=== PATIENT | female | born 1955 | race Caucasian/White ===

== ENCOUNTER 2018-07-27 05:40 | Emergency (ER) | payer OTHER ==
[~2018-07-27] VITALS: Ht 154.9 cm; Wt 106.6 kg
[2018-07-27 06:37] LABS: Basophils # (auto) 0.1 uL; Basophils % (auto) 0.5 % (0.0-2.0); Eosinophils # (auto) 0.1 uL; Eosinophils % (auto) 0.7 % (0.0-7.0); Hematocrit 48.7 % (36.0-46.0); Hemoglobin 15.9 g/dL (12.2-16.2); Lymphocytes # (auto) 2.3 uL; Lymphocytes % (auto) 19.1 % (10.0-50.0); Mean Corpuscular Hemoglobin 27.7 pg (28.0-32.0); Mean Corpuscular Hgb Conc. 32.6 g/dL (32.0-36.0); Monocytes % (auto) 8.7 % (0.0-12.0); Neutrophils # (auto) 8.5 uL; Platelet Count (auto) 318 10^3/uL (140-450); Red Blood Cells 5.73 10^6/uL (4.0-5.20); Red Cell Distribution Width 16.4 % (11.8-14.3); White Blood Cell 11.9 10^3/uL (4.4-10.8)
[2018-07-27 06:46] LABS: Albumin 3.3 g/dL (3.4-5.0); Calcium 8.8 mg/dL (8.5-10.1)
[2018-07-27 06:49] LABS: Urine Bacteria FEW /hpf (None Seen); Urine Blood Negative /uL (Negative); Urine Specific Gravity 1.009 (1.001-1.035); Urine WBC 6 /hpf (0 - 5)
[2018-07-27 06:50] LABS: BUN/Creatinine Ratio 8.2; Bilirubin, Total 0.6 mg/dL (0.2-1.0); Total Protein 7.6 g/dL (6.4-8.2)
[2018-07-27 07:14] VITALS: BP 143/62
[2018-07-27] MEDS ORDERED: ONDANSETRON HCL 4 MG/2 ML VIAL IV ONE (07:30)
[2018-07-27] MEDS ORDERED: HYDROcodone-ACET 7.5/325MG TAB PO ONE (07:30)
[2018-07-27] MEDS ORDERED: KETOROLAC TROMETH 30 MG/ML 1ML VIAL IV ONE (07:30)
[2018-07-27 07:41] LABS: Amylase 38 U/L (25-115); Lipase 95 U/L (73-393)
[2018-07-27 07:53] LABS: INR 1.01 (0.9-1.15); Partial Thromboplastin Time 31.3 sec (23.78-33.04); Prothrombin Time 10.8 sec (9.27-12.13)
== END 2018-07-27 09:11 | disposition home or self-care (01) ==
LOC: ER 05:42
DX: N39.0 Urinary tract infection, site not specified (principal); M54.5 Low back pain
CPT/HCPCS: 36415; 74176; 80053; 81001; 82150; 83690; 85025; 85610; 85730; 93005; 96372; 96374; 99284; J1885; J2405

== ENCOUNTER 2018-12-14 10:26 | Emergency (ER) | payer OTHER ==
[~2018-12-14] VITALS: Ht 154.9 cm; Wt 116.1 kg
[2018-12-14 10:54] VITALS: BP 116/61
[2018-12-14] MEDS ORDERED: KETOROLAC TROMETH 60MG/2ML VIAL IM ONE (12:00)
[2018-12-14] MEDS ORDERED: METHOCARBAMOL 500 MG TAB PO ONE (12:00)
== END 2018-12-14 12:45 | disposition home or self-care (01) ==
LOC: ER 10:27
DX: M54.5 Low back pain (principal); E66.01 Morbid (severe) obesity due to excess calories; Z68.42 Body mass index [BMI] 45.0-49.9, adult
CPT/HCPCS: 72100; 96372; 99283; J1885

== ENCOUNTER 2019-02-02 08:02 | Emergency (ER) | payer OTHER ==
[~2019-02-02] VITALS: Ht 154.9 cm; Wt 120.2 kg
[2019-02-02 08:30] VITALS: BP 147/75
[2019-02-02] MEDS ORDERED: PROMETHAZINE HCL 25 MG/ML 1ML IM ONE (09:00)
[2019-02-02] MEDS ORDERED: HYDROcodone-ACET 5/325MG TAB PO ONE (09:00)
[2019-02-02] MEDS ORDERED: diphenhdrAMINE HCL 25 MG CAP PO ONE (09:00)
[2019-02-02] MEDS ORDERED: KETOROLAC TROMETH 60MG/2ML VIAL IM ONE ×2 (09:00)
== END 2019-02-02 09:35 | disposition home or self-care (01) ==
LOC: ER 08:02
DX: S83.91XA Sprain of unspecified site of right knee, initial encounter (principal); J45.909 Unspecified asthma, uncomplicated; Z90.49 Acquired absence of other specified parts of digestive tract; Z98.51 Tubal ligation status; X58.XXXA Exposure to other specified factors, initial encounter; Y93.89 Activity, other specified; Y99.8 Other external cause status; Y92.89 Other specified places as the place of occurrence of the external cause
CPT/HCPCS: 29505; 96372; 99283; J1885